=== PATIENT | female | born 1955 | race Caucasian/White ===

== ENCOUNTER 2018-09-20 17:58 | Inpatient (IN) | payer OTHER ==
[~2018-09-20] VITALS: Ht 162.6 cm; Wt 74.8 kg
[2018-09-20 18:43] LABS: BASOPHIL % 0.4 % (0-2); PLATELET COUNT 181 x10^3mcL (130-400); RED CELL DISTRIBUTION WIDTH 13.5 % (11.5-14.5)
[2018-09-20 18:47] LABS: CARBON DIOXIDE 27.5 mmol/L (21-32); CHLORIDE SERUM 104 mmol/L (98-107); CREATININE SERUM 1.2 mg/dL (0.6-1.0); GFR1 48 mL/min; GLUCOSE SERUM 94 mg/dL (74-106); SODIUM SERUM 137 mmol/L (136-145)
[2018-09-20 18:53] LABS: ALBUMIN 3.8 g/dL (3.4-5.0); ALKALINE PHOSPHATASE 149 U/L (46-116); ALT/SGPT 24 U/L (14-59); BILIRUBIN TOTAL 0.29 mg/dL (0.20-1.00); LIPASE 191 IU/L (73-393); TOTAL PROTEIN, SERUM 8.2 g/dL (6.4-8.2)
[2018-09-20 18:55] LABS: CHOLESTEROL 204 mg/dL (<200); CHOLESTEROL/HDL RATIO 8.2; HDL CHOLESTEROL 25 mg/dL (40-60); TRIGLYCERIDES 455 mg/dL (<150)
[2018-09-20 18:56] LABS: POTASSIUM SERUM 4.2 mmol/L (3.5-5.1)
[2018-09-20 19:03] LABS: T3 TOTAL 1.25 ng/mL
[2018-09-20 19:12] LABS: FREE T4 1.18 ng/dL (0.76-1.46); FREE THYROXINE INDEX 3.7 ug/dL (1.4-4.5); T4(THYROXINE) 11.5 ug/dL (4.7-13.3)
[2018-09-20 19:43] LABS: UA SPECIFIC GRAVITY <=1.005 (1.005-1.035); microscopic required? YES; urine erythrocyte 1+ (NEGATIVE)
[2018-09-20 20:01] LABS: AST/SGOT 19 U/L (15-37)
[2018-09-20] MEDS ORDERED: CELEBREX200 MG PO (23:48)
[2018-09-20] MEDS ORDERED: LEVOTHYROXIN0.075 M2 PO (23:48)
[2018-09-21 00:38] VITALS: BP 138/79
[2018-09-21 00:43] VITALS: Ht 162.6 cm; Wt 74.8 kg
[2018-09-21 01:26] LABS: MAGNESIUM 2.2 mg/dL (1.8-2.4); PHOSPHOROUS 4.7 mg/dL (2.5-4.9)
[2018-09-21 03:35] LABS: BASOPHIL % 0.3 % (0-2); PLATELET COUNT 161 x10^3mcL (130-400); RED CELL DISTRIBUTION WIDTH 13.5 % (11.5-14.5)
[2018-09-21 03:46] LABS: CALCIUM 8.7 mg/dL (8.5-10.1); CARBON DIOXIDE 27.3 mmol/L (21-32); CHLORIDE SERUM 107 mmol/L (98-107); CREATININE SERUM 0.8 mg/dL (0.6-1.0); GFR1 > 60 mL/min; GLUCOSE SERUM 105 mg/dL (74-106); POTASSIUM SERUM 3.9 mmol/L (3.5-5.1); SODIUM SERUM 139 mmol/L (136-145)
[2018-09-21 04:26] LABS: AMPHETAMINE QUAL UR NONE DETECTED (See below)
[2018-09-21 05:28] VITALS: BP 104/56
[2018-09-21 10:48] VITALS: BP 110/59
[2018-09-21 13:27] VITALS: BP 110/59
[2018-09-21 14:14] VITALS: BP 103/64
== END 2018-09-21 16:34 | disposition home or self-care (01) | DRG 203 ==
LOC: ED 17:58 → DU 23:33
PROVIDERS: Family Medicine; Specialist
DX: M94.0 Chondrocostal junction syndrome [Tietze] (principal); N17.0 Acute kidney failure with tubular necrosis; E03.9 Hypothyroidism, unspecified; Z96.652 Presence of left artificial knee joint; M19.90 Unspecified osteoarthritis, unspecified site; F41.1 Generalized anxiety disorder; E78.5 Hyperlipidemia, unspecified; Z98.1 Arthrodesis status; Z68.28 Body mass index [BMI] 28.0-28.9, adult
CPT/HCPCS: 83880; 84439; 85378; Q9967

== ENCOUNTER 2019-09-28 13:00 | Emergency (ER) | payer OTHER ==
[~2019-09-28] VITALS: Ht 162.6 cm; Wt 76.3 kg
[~2019-09-28 13:00] MED LIST: CELEBREX200 MG PO; LEVOTHYROXIN0.075 M2 PO
[2019-09-28 13:02] VITALS: Ht 162.6 cm; Wt 76.3 kg
[2019-09-28 13:44] VITALS: BP 133/73
== END 2019-09-28 13:44 | disposition home or self-care (01) ==
LOC: ED 13:00
DX: R10.816 Epigastric abdominal tenderness (principal); R11.2 Nausea with vomiting, unspecified; E03.9 Hypothyroidism, unspecified; Z98.890 Other specified postprocedural states

== ENCOUNTER 2020-01-01 22:04 | Emergency (ER) | payer OTHER ==
[~2020-01-01] VITALS: Ht 162.6 cm; Wt 76.7 kg
[2020-01-01 22:08] VITALS: BP 157/73; Ht 162.6 cm; Wt 76.7 kg
== END 2020-01-01 23:05 | disposition home or self-care (01) ==
LOC: ED 22:04
DX: H01.004 Unspecified blepharitis left upper eyelid (principal); H01.001 Unspecified blepharitis right upper eyelid; M19.90 Unspecified osteoarthritis, unspecified site; R20.2 Paresthesia of skin; Z98.890 Other specified postprocedural states